=== PATIENT | female | born 2000 | race Two or more races ===

== ENCOUNTER 2022-01-17 18:28 | Emergency (ER) | payer OTHER ==
[~2022-01-17] VITALS: Ht 165.1 cm; Wt 53.5 kg
== END 2022-01-17 22:25 | disposition home or self-care (01) ==
LOC: EMR PED 18:28
DX: J06.9 Acute upper respiratory infection, unspecified (principal); N39.0 Urinary tract infection, site not specified; R53.81 Other malaise